=== PATIENT | male | born 1945 | race Caucasian/White ===

== ENCOUNTER 2017-09-18 08:45 | Day surgery (SDC) | payer OTHER, BC ==
[~2017-09-18] VITALS: Ht 180.3 cm; Wt 68.9 kg
[~2017-09-18 08:45] MED LIST: CHOLESTYRAM; CIPRO500 MG PO; FLAGYL500 MG PO; FLONASE16 G1 BOTH NARES; FLORASTOR250 MG PO; MEN'S MULTI-VI1 EACH PO; PROBIOTIC1 EAC2 PO; QUESTRAN PACKET4 GM PO; VITAMIN D-32000 UNI2 PO; XALATAN2.5 ML BOTH EYES
[2017-09-18 09:32] VITALS: BP 137/76
[2017-09-18] MEDS ORDERED: NORCO 5/3251 TABLET PO (12:13)
[2017-09-18 13:30] VITALS: BP 117/68
[2017-09-18 14:33] VITALS: BP 120/70
== END 2017-09-18 14:50 | disposition home or self-care (01) ==
LOC: SDC 08:45
PROC: 0YU50JZ Supplement Right Inguinal Region with Synthetic Substitute, Open Approach (ICD-10-PCS; principal; 2017-09-18)
DX: K40.90 Unilateral inguinal hernia, without obstruction or gangrene, not specified as recurrent (principal); I34.1 Nonrheumatic mitral (valve) prolapse
CPT/HCPCS: C1781; J2250; J2405; J3010; J7643